=== PATIENT | female | born 2000 | race Caucasian/White ===

== ENCOUNTER 2022-02-10 18:32 | Inpatient (IN) ==
--- NOTE | 2022-02-10 18:50 | Obstetrical Progress Note ---
Date of Service February 10, 2022 Assessment & Plan (1) Mild preeclampsia: Plan: Glory is a 21-year-old currently at 37 weeks 0 days gestational age presents for cervical ripening fully for planned induction of labor tomorrow. Induction is planned secondary to mild preeclampsia. Patient was verbally consented for the procedure. We discussed risks of the procedure including rupture of membranes and intolerance of the Heath catheter. Questions an swered patient's satisfaction. Reactive NST noted prior And following cervical Heath placement. (2) Supervision of normal intrauterine in primigravida: (3) Unfavorable cervix in term : Subjective Glory is a 21-year-old currently at 37 weeks 0 days gestational age presents for cervical ripening fully for planned induction of labor tomorrow. Induction is planned secondary to mild preeclampsia. Patient was verbally consented for the procedure. We discussed risks of the procedure including rupture of membranes and intolerance of the Heath catheter. Questions answered patient's satisfaction. Results & Data ([facility]) Vital Signs (Past 12 Hours) Vital Signs Temp Pulse Resp BP 02/10/22 18:37 37.1 C 112 H 20 133/77 PG Care Time/CCT Total # of Minutes Spent Total Time Spent with Patient: Total time spent is greater than 50% in coordination of care (as documented) at patient's floor/unit and/or counseling patient: Coding Diagnoses Mild preeclampsia O14.00 Supervision of normal intrauterine in primigravida Z34.00 Unfavorable cervix in term O34.40
[2022-02-10] MEDS ORDERED: LIDOCAINE 1% LOCAL 20 ML VIAL INFIL PRN (19:53)
[2022-02-10] MEDS ORDERED: OXYTOCIN 30 UNITS/500 ML BAG IV PRN (19:53)
--- NOTE | 2022-02-10 20:05 | History & Physical Report ---
Date of Service February 10, 2022 Assessment & Plan (1) Mild preeclampsia: Plan: Glory is a 21-year-old at 37 weeks 0 days gestational age presents for cervical ripening Heath for planned induction tomorrow for mild preeclampsia. Patient was noted to have recurrent heart rate deceleration. After Heath placement. This was also noted with a distinct drop in blood pressure, nausea/vomiting and lightheaded feeling. Fetus recovered with maternal pos itioning is currently category 1. patient appeared to have a vasovagal response a Heath catheter. Discussed admitting due to the deceleration switch patient was agreeable to. Will continuously moderate overnight. (2) Supervision of normal intrauterine in primigravida: (3) Unfavorable cervix in term : History of Present Illness Primary Care Provider: NO PCP Glory is a 21-year-old currently at 37 weeks 0 days gestational age. Patient presented for cervical ripening Heath with planned induction tomorrow for mild preeclampsia. The cervical ripening Heath was placed without difficulty. Approximately 10 minutes after placement the patient had a noted dr op in blood pressure from baseline and had a prolonged deceleration noted on monitoring. spontaneously recovered. A no other deceleration recurred the patient was also noted to have vomiting and feeling of lightheadedness. The 2nd deceleration also recovered with maternal positioning. After deceleration is occurred I discussed with patient that we would admit her for continuous monitoring overnight due to the recurrent deceleration. Tracing is currently category 1. patient was agreeable to plan. OB Labs: Blood Type A Positive 07/16/21 Antibody Screen NEGATIVE 07/16/21 Hemoglobin 10.9 g/dl (12.0-16.0) L 02/08/22 Hematocrit 33.5 % (34.1-44.9) L 02/08/22 Mean Corpuscular Volume 84.8 fL (80.0-100.0) 02/08/22 Platelet Count 282 K/uL (130-400) 02/08/22 Rubella IgG Antibody Immune (Immune) 07/16/21 Rapid Plasma Reagin Nonreactive (Nonreactive) 07/16/21 Hepatitis B Surface Antigen Neg (Neg) 07/16/21 Hepatitis C Antibody Neg (Neg) 07/16/21 HIV (1&2) Ab and P24 Ag, 4th Gener Neg (Neg) 07/16/21 Glucose 1 Hour 50 gm Load 129 mg/dl (70-130) 12/18/21 Maternal Serum Alpha Fetoprotein 29.5 ng/mL 09/17/21 OB Optional Labs: Chlamydia trachomatis RNA NOT DETECTED (NOT DETECTED) 07/16/21 Neisseria gonorrhoeae RNA NOT DETECTED (NOT DETECTED) 07/16/21 Alpha Fetoprotein Triple Screen SEE NOTE 09/17/21 Labs Reviewed: csf/sma-negative--mln cfdna-low risk--mln Allergies Allergy/AdvReac Type Severity Reaction Status Date / Time No Known Allergies Allergy Verified 02/10/22 10:43 Home Medications Medication Instructions Recorded Confirmed Type prenat.vits,vidal,vwu-pmbl-oreoq 1 tab PO DAILY 07/10/21 02/10/22 History Patient History Surgical History S/P wisdom tooth extraction Family History Other Diabetes Hypertension Social History (Updated 02/10/22 @ 18:42 by Marjorie Mcdaniels RN) Smoking Status: Never smoker Hx Alcohol Use: No Hx Substance Use: No Preferred Language: Kyrgyz Communication Ability: Effective Hearing Ability: Normal Sample Maker Original Required: No Beliefs That Will Affect Care: None marital status: Single marital status details: Luiz (39) [phone] Current Living Situation: Significant Other Current Living Situation Comment: Lives with Luiz and 1 dog. current occupational status: employed current occupation: professional programmer analyst [employer] Other Information That Helps Us Care for You: No Feels Safe at Home: Yes Safety Concerns: Feels Safe At This Time Gender Identity: Female Assistive Devices: None Physical Exam Genitourinary: Manual OB Exam: + cervical dilation fingertip, + cervical effacement 70% and + station -2 OB Exam Monitor Tracing: + external FHT monitor used, + external uterine monitor used, + category I and + normal FHT variability fetus currently category 1. Results & Data ([facility]) Vital Signs (Past 12 Hours) Vital Signs Temp Pulse Resp BP Pulse Ox 02/10/22 19:49 100 02/10/22 19:49 80 02/10/22 19:49 80 93 02/10/22 19:45 80 101/63 02/10/22 19:44 80 99 02/10/22 19:39 72 99 02/10/22 19:34 76 99 02/10/22 19:32 75 92 02/10/22 19:29 52 L 98 02/10/22 19:24 61 98 02/10/22 19:09 70 110/55 L 02/10/22 18:37 37.1 C 112 H 20 133/77 Coding Level of Care Code None Diagnoses Mild preeclampsia O14.00 Supervision of normal intrauterine in primigravida Z34.00 Unfavorable cervix in term O34.40
[2022-02-10 20:22] LABS: Hematocrit (blood only) 33.9 % (34.1-44.9); Hemoglobin 10.7 g/dl (12.0-16.0); Mean Corpuscular Hemoglobin 27.2 pg (25.0-34.0); Mean Corpuscular Hgb Conc 31.6 g/dL (32.0-36.0); Mean Corpuscular Volume 86.3 fL (80.0-100.0); Mean Platelet Volume 11.7 fL (9.4-12.3); Platelet Count 270 K/uL (130-400); RDW Coefficient of Variation 13.6 % (11.5-14.5); RDW Standard Deviation 42.5 fL (36.4-46.3); Red Blood Count 3.93 M/uL (3.93-5.22); White Blood Count 11.78 K/ul (4.8-10.8)
[2022-02-10 20:43] LABS: Creatinine Clr Calc Pharmacy 153.6 ml/min; Est GFR (African American) 145.9 ml/min; Est GFR (Non-African American) 125.9 ml/min
[2022-02-11] MEDS ORDERED: OXYTOCIN 30 UNITS/500 ML BAG IV PRN ×2 (04:35→22:20)
[2022-02-11] MEDS: LACTATED RINGER'S 1,000 ML IV PRN ×3 (08:08→19:12)
--- NOTE | 2022-02-11 12:30 | Labor Progress Brief Note ---
Date of Service February 11, 2022 Subjective Patient notes some contractions but tolerating. Assessment & Plan (1) Mild preeclampsia: (2) Encounter for induction of labor: Plan continue pitocin, epidural on demand. fetus catgory one. anticipate . Admission and Anticipated Discharge Date Admission Date: February 10, 2022 Physical Exam Physical Exam: cx--4/50/-2, arom, clear toco--q3min, pit at 13 efm--140s with mod varibility, accels to 160s, no decels Results & Data ([facility]) Vital Signs (Past 12 Hours) Vital Signs Temp Pulse Resp BP 02/11/22 07:10 36.7 C 18 02/11/22 12:09 76 116/58 L 02/11/22 12:01 18 02/11/22 12:01 37.1 C 02/11/22 11:39 84 116/66 02/11/22 11:08 85 113/55 L 02/11/22 10:38 88 121/74 02/11/22 10:08 100 H 129/67 02/11/22 09:38 90 120/68 02/11/22 09:09 89 118/69 02/11/22 08:38 85 129/73 02/11/22 07:02 75 135/63 02/11/22 05:59 18 02/11/22 05:59 18 02/11/22 05:01 18 02/11/22 05:01 18 02/11/22 04:02 18 02/11/22 04:02 18 Coding Level of Care Code None Diagnoses Mild preeclampsia O14.00 Encounter for induction of labor Z34.90
[2022-02-11] MEDS ORDERED: BUPIVACAINE 0.25% 30 ML VIAL ONE (16:31)
[2022-02-11] MEDS ORDERED: fentaNYL citrate 100 MCG/2 ML VIAL ONE (16:31)
[2022-02-11] MEDS ORDERED: SODIUM CHLORIDE 0.9% INJ 10 ML VIAL ONE (16:31)
[2022-02-11] MEDS ORDERED: ePHEDrine sulfate 50 MG/ML AMP ONE (16:31)
[2022-02-11] MEDS ORDERED: LIDOCAINE 2%/EPINEPHRINE 1:200,000 20 ML SDV ONE (16:31)
[2022-02-11] MEDS ORDERED: fentaNYL 2MCG/ML ROPIVACAINE 1.25MG/ML 100 ML BAG EPI ONE (16:32)
[2022-02-11] MEDS ORDERED: ePHEDrine sulfate 50 MG/ML AMP IV PRN (16:39)
[2022-02-11] MEDS ORDERED: NALOXONE HCL 1 MG in SODIUM CHLORIDE 0.9% 1000ML 1,000 ML IV PRN (16:39)
[2022-02-11] MEDS ORDERED: NALOXONE HCL 0.4 MG/1 ML VIAL/CARP IV PRN (16:39)
[2022-02-11] MEDS ORDERED: NALBUPHINE HCL INJ 10 MG/ML AMP IV PRN (16:39)
[2022-02-11] MEDS ORDERED: fentaNYL 2MCG/ML ROPIVACAINE 1.25MG/ML 100 ML BAG EPI PRN (16:39)
[2022-02-11] MEDS ORDERED: diphenhydrAMINE 50 MG/ML VIAL IV PRN (16:39)
--- NOTE | 2022-02-11 16:39 | Anesthesiology Consultation ---
Date of Service February 11, 2022 Assessment & Plan (1) Encounter for pre-operative examination: Chart Review Chart Review: Patient NOT seen in Pre Admission Testing and Acceptable Risk for Labor Epidural Consults Requested none History Height/Weight Height: 5 ft 3 in Weight: 105.687 kg Allergies Allergy/AdvReac Type Severity Reaction Status Date / Time No Known Allergies Allergy Verified 02/10/22 10:43 Medications Home Medications Medication Instructions Recorded Confirmed Last Taken prenat.vits,vidal,ehl-ycus-xjbka 1 tab PO DAILY 07/10/21 02/10/22 02/09/22 08:00 Active Medications Generic Name Dose Route Start Last Admin Trade Name Freq PRN Reason Stop Dose Admin Lactated Ringer's 1,000 mls @ 125 mls/hr 02/10/22 19:53 02/11/22 16:23 Lr IV 02/12/22 19:52 999 mls/hr .Q8H PRN Administration L&D Protocol Protocol Oxytocin 30 units in 500 mls @ 15 mls/hr 02/11/22 04:35 02/11/22 14:00 Pitocin IV 02/13/22 04:34 0.9 units/hr .Q24H PRN 15 mls/hr Labor Induction/Augmentation Titration Protocol 0.9 UNITS/HR Past Family History Family History Other Diabetes Hypertension Past Surgical History Surgical History S/P wisdom tooth extraction Social History Smoking Status: Never smoker Hx Alcohol Use: No Hx Substance Use: No substance use type: does not use Physical Exam Vital Signs Last Vital Signs Temp 98.4 F 02/11/22 16:20 Pulse 68 02/11/22 16:08 Resp 18 02/11/22 14:30 BP 121/65 02/11/22 16:08 Pulse Ox 100 02/10/22 19:49 Testing Laboratory Results 02/10/22 20:10 02/10/22 20:10 Blood Type A Positive 02/10/22 20:10 Antibody Screen NEGATIVE 02/10/22 20:10
--- NOTE | 2022-02-11 18:21 | Labor Progress Brief Note ---
Date of Service February 11, 2022 Subjective comfortable after epidural Assessment & Plan (1) Encounter for induction of labor: (2) Mild preeclampsia: Plan continue current management. pit max of 30 now. goal of 200 mvus. bps are stable. fetus category one. Admission and Anticipated Discharge Date Admission Date: February 10, 2022 Physical Exam Physical Exam: cx--5/100/-1 iupc placed clear fluid toco--irregular since epidural, q 2 6 min, pit at 19 efm--140s with mod variability, accels to 160s, no decels, +scalp stim Results & Data ([facility]) Vital Signs (Past 12 Hours) Vital Signs Temp Pulse Resp BP Pulse Ox 02/11/22 07:10 36.7 C 18 02/11/22 18:14 99 H 99 02/11/22 18:09 83 100 02/11/22 18:04 88 100 02/11/22 18:02 86 126/63 02/11/22 18:00 18 02/11/22 18:00 18 02/11/22 17:59 85 100 02/11/22 17:57 83 124/59 L 02/11/22 17:54 87 100 02/11/22 17:52 86 123/64 02/11/22 17:45 18 02/11/22 17:45 18 02/11/22 17:49 88 100 02/11/22 17:46 86 129/76 02/11/22 17:44 91 H 100 02/11/22 17:42 90 141/65 H 02/11/22 17:39 91 H 100 02/11/22 17:37 96 H 136/69 02/11/22 17:34 88 100 02/11/22 17:30 18 02/11/22 17:30 18 02/11/22 17:31 111 H 143/65 H 02/11/22 17:06 18 02/11/22 17:06 18 02/11/22 17:08 18 02/11/22 17:08 18 02/11/22 17:12 20 02/11/22 17:12 20 02/11/22 17:29 92 H 100 02/11/22 17:26 83 133/60 02/11/22 17:24 111 H 18 100 02/11/22 17:19 115 H 20 137/60 100 02/11/22 17:18 105 H 132/63 02/11/22 17:15 93 H 20 135/75 02/11/22 17:14 100 02/11/22 17:14 96 H 02/11/22 17:14 99 H 135/73 02/11/22 17:11 93 H 129/62 02/11/22 17:09 95 H 128/59 L 100 02/11/22 17:07 89 126/59 L 02/11/22 17:05 101 H 135/62 02/11/22 17:04 100 H 100 02/11/22 17:03 112 H 144/69 H 02/11/22 17:01 112 H 139/71 02/11/22 16:59 105 H 134/67 100 02/11/22 16:58 92 H 136/77 02/11/22 16:54 108 H 100 02/11/22 16:49 89 100 02/11/22 16:44 86 100 02/11/22 16:39 80 151/75 H 100 02/11/22 16:20 36.9 C 02/11/22 16:08 68 121/65 02/11/22 15:38 85 127/58 L 02/11/22 15:09 95 H 128/80 02/11/22 14:39 83 129/67 02/11/22 14:30 18 02/11/22 14:30 36.7 C 18 02/11/22 14:08 80 131/73 02/11/22 13:38 77 131/73 02/11/22 13:09 71 117/66 02/11/22 12:39 75 122/58 L 02/11/22 12:30 37.5 C 02/11/22 12:09 76 116/58 L 02/11/22 12:01 18 02/11/22 12:01 37.1 C 18 02/11/22 11:39 84 116/66 02/11/22 11:08 85 113/55 L 02/11/22 10:38 88 121/74 02/11/22 10:08 100 H 129/67 02/11/22 09:38 90 120/68 02/11/22 09:09 89 118/69 02/11/22 08:38 85 129/73 02/11/22 07:02 75 135/63 Coding Level of Care Code None Diagnoses Encounter for induction of labor Z34.90 Mild preeclampsia O14.00
--- NOTE | 2022-02-11 20:31 | Labor Progress Brief Note ---
Date of Service February 11, 2022 Subjective comfortable Assessment & Plan (1) Encounter for induction of labor: (2) Mild preeclampsia: Plan continue current plan, contractions adequate. fetus overall category one with a rare variable. Admission and Anticipated Discharge Date Admission Date: February 10, 2022 Physical Exam Physical Exam: cx--6/100/-1, molding toco--q1-2min, pit at 19, contractions adequate efm--150s with mod variability, accels to 160s, rare variable Results & Data ([facility]) Vital Signs (Past 12 Hours) Vital Signs Temp Pulse Resp BP Pulse Ox O2 Del Method 02/11/22 19:05 37.5 C 18 02/11/22 19:05 Room Air 02/11/22 20:24 108 H 100 02/11/22 20:25 110 H 122/59 L 02/11/22 20:19 81 100 02/11/22 20:14 80 100 02/11/22 20:09 81 100 02/11/22 20:10 81 95/53 L 02/11/22 20:00 18 02/11/22 20:00 18 02/11/22 20:04 81 100 02/11/22 19:59 83 100 02/11/22 19:54 100 02/11/22 19:54 83 02/11/22 19:54 86 98/57 L 02/11/22 19:49 81 99 02/11/22 19:44 80 100 02/11/22 19:39 81 100 02/11/22 19:38 77 101/50 L 02/11/22 19:30 18 02/11/22 19:30 18 02/11/22 19:34 79 100 02/11/22 19:29 78 100 02/11/22 19:24 77 100 02/11/22 19:25 78 104/52 L 02/11/22 19:19 81 100 02/11/22 19:14 78 100 02/11/22 19:09 75 100 02/11/22 19:08 80 102/50 L 02/11/22 19:04 74 100 02/11/22 19:03 77 98/51 L 02/11/22 19:00 37.5 C 02/11/22 19:00 20 02/11/22 19:00 20 02/11/22 18:59 82 100 02/11/22 18:58 80 100/50 L 02/11/22 18:54 81 100 02/11/22 18:55 80 110/58 L 02/11/22 18:49 75 100 02/11/22 18:50 75 100/56 L 02/11/22 18:45 18 02/11/22 18:45 18 02/11/22 18:44 80 99/55 L 100 02/11/22 18:39 73 100 02/11/22 18:30 20 02/11/22 18:30 20 02/11/22 18:38 80 104/55 L 02/11/22 18:37 81 96/52 L 02/11/22 18:34 78 91/49 L 100 02/11/22 18:29 72 100 02/11/22 18:24 73 100 02/11/22 18:16 18 02/11/22 18:16 37.0 C 18 02/11/22 18:19 100 02/11/22 18:19 105 H 02/11/22 18:19 126 H 132/85 02/11/22 18:14 99 H 99 02/11/22 18:09 83 100 02/11/22 18:04 88 100 02/11/22 18:02 86 126/63 02/11/22 18:00 18 02/11/22 18:00 18 02/11/22 17:59 85 100 02/11/22 17:57 83 124/59 L 02/11/22 17:54 87 100 02/11/22 17:52 86 123/64 02/11/22 17:45 18 02/11/22 17:45 18 02/11/22 17:49 88 100 02/11/22 17:46 86 129/76 02/11/22 17:44 91 H 100 02/11/22 17:42 90 141/65 H 02/11/22 17:39 91 H 100 02/11/22 17:37 96 H 136/69 02/11/22 17:34 88 100 02/11/22 17:30 18 02/11/22 17:30 18 02/11/22 17:31 111 H 143/65 H 02/11/22 17:06 18 02/11/22 17:06 18 02/11/22 17:08 18 02/11/22 17:08 18 09/20/22 17:12 20 02/11/22 17:12 20 02/11/22 17:29 92 H 100 02/11/22 17:26 83 133/60 02/11/22 17:24 111 H 18 100 02/11/22 17:19 115 H 20 137/60 100 02/11/22 17:18 105 H 132/63 02/11/22 17:15 93 H 20 135/75 02/11/22 17:14 100 02/11/22 17:14 96 H 02/11/22 17:14 99 H 135/73 02/11/22 17:11 93 H 129/62 02/11/22 17:09 95 H 128/59 L 100 02/11/22 17:07 89 126/59 L 02/11/22 17:05 101 H 135/62 02/11/22 17:04 100 H 100 02/11/22 17:03 112 H 144/69 H 02/11/22 17:01 112 H 139/71 02/11/22 16:59 105 H 134/67 100 02/11/22 16:58 92 H 136/77 02/11/22 16:54 108 H 100 02/11/22 16:49 89 100 02/11/22 16:44 86 100 02/11/22 16:39 80 151/75 H 100 02/11/22 16:20 36.9 C 02/11/22 16:08 68 121/65 02/11/22 15:38 85 127/58 L 02/11/22 15:09 95 H 128/80 02/11/22 14:39 83 129/67 02/11/22 14:30 18 02/11/22 14:30 36.7 C 02/11/22 14:08 80 131/73 02/11/22 13:38 77 131/73 02/11/22 13:09 71 117/66 02/11/22 12:39 75 122/58 L 02/11/22 12:30 37.5 C 02/11/22 12:09 76 116/58 L 02/11/22 12:01 18 02/11/22 12:01 37.1 C 18 02/11/22 11:39 84 116/66 02/11/22 11:08 85 113/55 L 02/11/22 10:38 88 121/74 02/11/22 10:08 100 H 129/67 02/11/22 09:38 90 120/68 02/11/22 09:09 89 118/69 02/11/22 08:38 85 129/73 Coding Level of Care Code None Diagnoses Encounter for induction of labor Z34.90 Mild preeclampsia O14.00
--- NOTE | 2022-02-11 21:44 | Labor Progress Brief Note ---
Date of Service February 11, 2022 Subjective patietn started feeling uncomfortable and pressure Assessment & Plan (1) Encounter for induction of labor: (2) Mild preeclampsia: Plan begin second stage. fetus overall reassuring. anticipate . Admission and Anticipated Discharge Date Admission Date: February 10, 2022 Physical Exam Physical Exam: cx--c/c/+2 toco--q2-3min efm--150s wtih mod variabitiy, accels xt471s, variable/early with contractions. Results & Data ([facility]) Vital Signs (Past 12 Hours) Vital Signs Temp Pulse Resp BP Pulse Ox O2 Del Method 02/11/22 19:05 37.5 C 18 02/11/22 19:05 Room Air 02/11/22 21:39 100 02/11/22 21:39 112 H 02/11/22 21:39 90 120/56 L 02/11/22 21:34 85 100 02/11/22 21:29 88 99 02/11/22 21:25 113 H 136/58 L 02/11/22 21:24 117 H 100 02/11/22 21:19 107 H 99 02/11/22 21:14 108 H 99 02/11/22 21:00 18 02/11/22 21:00 18 02/11/22 21:09 106 H 99 02/11/22 21:08 93 H 135/61 02/11/22 21:04 106 H 98 02/11/22 20:59 104 H 98 02/11/22 20:55 103 H 137/70 02/11/22 20:54 96 H 98 02/11/22 20:30 18 02/11/22 20:30 18 02/11/22 20:49 103 H 98 02/11/22 20:44 97 H 99 02/11/22 20:39 100 02/11/22 20:39 94 H 02/11/22 20:39 93 H 134/68 02/11/22 20:30 18 02/11/22 20:30 37.6 C H 18 02/11/22 20:34 92 H 100 02/11/22 20:29 103 H 99 02/11/22 20:24 108 H 100 02/11/22 20:25 110 H 122/59 L 02/11/22 20:19 81 100 02/11/22 20:14 80 100 02/11/22 20:09 81 100 02/11/22 20:10 81 95/53 L 02/11/22 20:00 18 02/11/22 20:00 18 02/11/22 20:04 81 100 02/11/22 19:59 83 100 02/11/22 19:54 100 02/11/22 19:54 83 02/11/22 19:54 86 98/57 L 02/11/22 19:49 81 99 02/11/22 19:44 80 100 02/11/22 19:39 81 100 02/11/22 19:38 77 101/50 L 02/11/22 19:30 18 02/11/22 19:30 18 02/11/22 19:34 79 100 02/11/22 19:29 78 100 02/11/22 19:24 77 100 02/11/22 19:25 78 104/52 L 02/11/22 19:19 81 100 02/11/22 19:14 78 100 02/11/22 19:09 75 100 02/11/22 19:08 80 102/50 L 02/11/22 19:04 74 100 02/11/22 19:03 77 98/51 L 02/11/22 19:00 37.5 C 02/11/22 19:00 20 02/11/22 19:00 20 02/11/22 18:59 82 100 02/11/22 18:58 80 100/50 L 02/11/22 18:54 81 100 02/11/22 18:55 80 110/58 L 02/11/22 18:49 75 100 02/11/22 18:50 75 100/56 L 02/11/22 18:45 18 02/11/22 18:45 18 02/11/22 18:44 80 99/55 L 100 02/11/22 18:39 73 100 02/11/22 18:30 20 02/11/22 18:30 20 02/11/22 18:38 80 104/55 L 02/11/22 18:37 81 96/52 L 02/11/22 18:34 78 91/49 L 100 02/11/22 18:29 72 100 02/11/22 18:24 73 100 02/11/22 18:16 18 02/11/22 18:16 37.0 C 18 02/11/22 18:19 100 02/11/22 18:19 105 H 02/11/22 18:19 126 H 132/85 02/11/22 18:14 99 H 99 02/11/22 18:09 83 100 02/11/22 18:04 88 100 02/11/22 18:02 86 126/63 02/11/22 18:00 18 02/11/22 18:00 18 02/11/22 17:59 85 100 02/11/22 17:57 83 124/59 L 02/11/22 17:54 87 100 02/11/22 17:52 86 123/64 02/11/22 17:45 18 02/11/22 17:45 18 02/11/22 17:49 88 100 02/11/22 17:46 86 129/76 02/11/22 17:44 91 H 100 02/11/22 17:42 90 141/65 H 02/11/22 17:39 91 H 100 02/11/22 17:37 96 H 136/69 02/11/22 17:34 88 100 02/11/22 17:30 18 02/11/22 17:30 18 02/11/22 17:31 111 H 143/65 H 02/11/22 17:06 18 02/11/22 17:06 18 02/11/22 17:08 18 02/11/22 17:08 18 02/11/22 17:12 20 02/11/22 17:12 20 02/11/22 17:29 92 H 100 02/11/22 17:26 83 133/60 02/11/22 17:24 111 H 18 100 02/11/22 17:19 115 H 20 137/60 100 02/11/22 17:18 105 H 132/63 02/11/22 17:15 93 H 20 135/75 02/11/22 17:14 100 02/11/22 17:14 96 H 02/11/22 17:14 99 H 135/73 02/11/22 17:11 93 H 129/62 02/11/22 17:09 95 H 128/59 L 100 02/11/22 17:07 89 126/59 L 02/11/22 17:05 101 H 135/62 02/11/22 17:04 100 H 100 09/20/22 17:03 112 H 144/69 H 02/11/22 17:01 112 H 139/71 02/11/22 16:59 105 H 134/67 100 02/11/22 16:58 92 H 136/77 02/11/22 16:54 108 H 100 02/11/22 16:49 89 100 02/11/22 16:44 86 100 02/11/22 16:39 80 151/75 H 100 02/11/22 16:20 36.9 C 02/11/22 16:08 68 121/65 02/11/22 15:38 85 127/58 L 02/11/22 15:09 95 H 128/80 02/11/22 14:39 83 129/67 02/11/22 14:30 18 02/11/22 14:30 36.7 C 18 02/11/22 14:08 80 131/73 02/11/22 13:38 77 131/73 02/11/22 13:09 71 117/66 02/11/22 12:39 75 122/58 L 02/11/22 12:30 37.5 C 02/11/22 12:09 76 116/58 L 02/11/22 12:01 18 02/11/22 12:01 37.1 C 18 02/11/22 11:39 84 116/66 02/11/22 11:08 85 113/55 L 02/11/22 10:38 88 121/74 02/11/22 10:08 100 H 129/67 Coding Level of Care Code None Diagnoses Encounter for induction of labor Z34.90 Mild preeclampsia O14.00
[2022-02-11] MEDS ORDERED: DIPHTHERIA/TETANUS/PERTUSSIS 0.5 ML SYR/VIAL IM ONE (22:20)
[2022-02-11] MEDS ORDERED: bisacodyL 10 MG SUPP PR PRN (22:20)
[2022-02-11] MEDS ORDERED: ACETAMINOPHEN 325 MG TAB PO PRN (22:20)
[2022-02-11] MEDS ORDERED: HYDROCORTISONE ACETATE 25 MG SUPP PR PRN (22:20)
[2022-02-11] MEDS ORDERED: oxyCODONE/ACETAMINOPHEN 5mg/325mg TAB PO PRN (22:20)
[2022-02-11] MEDS ORDERED: BENZOCAINE 20% AER SPR 82.5 GM CAN EXT PRN (22:20)
--- NOTE | 2022-02-11 22:20 | Delivery Summary ---
Vaginal Delivery Summary Date of Service February 11, 2022 Vaginal Delivery Summary and 1st Degree LAC (bilateral labial) Pre-operative Diagnosis: at 37 weeks pet Post-operative Diagnosis: same Procedure: mascorro bulb for cervical ripening pitocin induction arom epidural iupc first degree and bilateral labial lacerations and repair EBL: 300cc Anesthesia: epidual Procedure: Patient presented yesterday evening for mascorro bulb. mascorro placed but then patient had valsalva episode x 2 with good recovery. She was then admitted for induction. Mascorro fell out in the am. Pitocin was started. Once in a good contraction pattern, arom done for clear fluid at 5cm. Patient required iupc to document adequate contraction pattern. She then progress to c/c/+w. The patient pushed for 3-4 contractions to deliver a viable female in hung position. The nose and mouth were bulb suctioned on the perineum, a nuchal cord reduced easily, and the rest of the was then delivered without difficulty. The baby was vigorous. The nose and mouth were again bulb suctioned and the infant was placed in the maternal abdomen for drying and attention. Cord was clamped and cut at one minute of life. Cord blood and segment obtained. Placenta delivered spontaneous, intact with a three vessel cord. Cervix/sulci/rectum were intact. A first degree perineal laceration and bilateral labial lacs were repaired in the normal standard fashion. Hemostasis obtained with dilute pitocin and fundal massage. Apgars were 8/9. Mother and baby doing well at the end of the delivery. PET labs were normal and her pressures remained good throughout labor. [facility] Vaginal Delivery Charge Delivery Type Details: and 1st Degree LAC (bilateral labial)
--- NOTE | 2022-02-12 05:19 | Obstetrical Progress Note ---
Date of Service February 12, 2022 Assessment & Plan (1) Mild preeclampsia: (2) Vaginal delivery: Plan - Overall, feeling well and eating well today - Patient denies headache or visual changes, BP is wnl - breast feeding going well without concern - Urinating and passing gas appropriately - Ambulating well througout room - Pain controlled w/o medication - Routine PP care progressing well - Anticipate discharge tomorrow Admission and Anticipated Discharge Date Admission Date: February 10, 2022 Supervising Physician Co-Signing Physician Notes Resident Physician Supervision Note: I interviewed and examined the patient. Discussed with Dr. Dorsey and agree with findings and plan as documented in the note. Any exceptions or clarifications are listed here: Doing well. BPs are great. no s/s of pet. Routine care. Likely d/c tomorrow. Documented By: Martha Lewis MD, FACOG Subjective Today 02/12: Patient is a 21 y/o female who is PPD #1 following delivery after IOL for pre-eclampsia at 37w1d. Patient states that she is feeling well overall. - Ambulation - around room without difficulty - Voiding/Heath - independently voiding without difficulty or dysuria - Gas/Stool - passing gas, no bowel movement - Diet - regular diet, no nausea or emesis - Lochia - unchanged, moderate-heavy - Feeding Type - w/ pumping - Pain Level - 4/10 without pain medication, patient not interested in additional pain mgmt at this time Review of Systems - Denies fever, chills, sweats - Denies shortness of breath, difficulty breathing, chest pain, palpitations, chest pressure. - Denies breast pain. - Denies dysuria. - Denies headache or changes in vision. Physical Exam Physical Exam: General: Alert, oriented. No acute distress. Cardiac: RRR, normal S1/S2, no murmurs/rubs/gallops. Respiratory: Non-labored, CTAB, no wheezes/rales/rhonchi. Symmetric chest rise. Abdomen: Soft, nontender, nondistended. Bowel sounds present. Uterus: Uterine fundus firm, palpable 2 cm below umbilicus. Lower Extremities: 2+ lower extremity edema. No deep calf pain. Leida's negative bilaterally. Results & Data ([facility]) Vital Signs (Past 12 Hours) Vital Signs Temp Pulse Pulse Resp BP BP Pulse Ox 02/12/22 00:35 37.2 C 115 H 18 122/83 98 02/12/22 00:20 36.7 C 126 H 18 112/53 L 02/11/22 23:45 127 H 18 118/55 L 02/11/22 23:15 18 02/11/22 23:00 18 02/11/22 22:45 18 02/11/22 22:30 18 02/11/22 22:15 37.7 C H 18 02/11/22 19:05 37.5 C 18 02/11/22 19:05 02/12/22 00:13 126 H 112/53 L 02/11/22 23:58 131 H 103/54 L 02/11/22 23:43 127 H 118/55 L 02/11/22 23:28 114 H 128/58 L 02/11/22 23:13 93 H 116/58 L 02/11/22 22:58 115 H 110/63 02/11/22 22:43 97 H 115/58 L 02/11/22 21:30 20 02/11/22 21:30 20 02/11/22 22:28 114 H 120/59 L 02/11/22 22:13 133 H 120/62 02/11/22 22:09 98 02/11/22 22:09 145 H 02/11/22 22:09 142 H 129/56 L 02/11/22 22:07 37.7 C H 02/11/22 22:04 144 H 98 02/11/22 21:59 140 H 99 02/11/22 21:54 164 H 99 02/11/22 21:49 134 H 100 02/11/22 21:44 143 H 100 02/11/22 21:39 100 02/11/22 21:39 112 H 02/11/22 21:39 90 120/56 L 02/11/22 21:34 85 100 02/11/22 21:29 88 99 02/11/22 21:25 113 H 136/58 L 02/11/22 21:24 117 H 100 02/11/22 21:19 107 H 99 02/11/22 21:14 108 H 99 02/11/22 21:00 18 02/11/22 21:00 18 02/11/22 21:09 106 H 99 02/11/22 21:08 93 H 135/61 02/11/22 21:04 106 H 98 02/11/22 20:59 104 H 98 02/11/22 20:55 103 H 137/70 02/11/22 20:54 96 H 98 02/11/22 20:30 18 02/11/22 20:30 18 02/11/22 20:49 103 H 98 02/11/22 20:44 97 H 99 02/11/22 20:39 100 02/11/22 20:39 94 H 02/11/22 20:39 93 H 134/68 02/11/22 20:30 18 02/11/22 20:30 37.6 C H 18 02/11/22 20:34 92 H 100 02/11/22 20:29 103 H 99 02/11/22 20:24 108 H 100 02/11/22 20:25 110 H 122/59 L 02/11/22 20:19 81 100 02/11/22 20:14 80 100 02/11/22 20:09 81 100 02/11/22 20:10 81 95/53 L 02/11/22 20:00 18 02/11/22 20:00 18 02/11/22 20:04 81 100 02/11/22 19:59 83 100 02/11/22 19:54 100 02/11/22 19:54 83 02/11/22 19:54 86 98/57 L 02/11/22 19:49 81 99 02/11/22 19:44 80 100 02/11/22 19:39 81 100 02/11/22 19:38 77 101/50 L 02/11/22 19:30 18 02/11/22 19:30 18 02/11/22 19:34 79 100 02/11/22 19:29 78 100 02/11/22 19:24 77 100 02/11/22 19:25 78 104/52 L 02/11/22 19:19 81 100 02/11/22 19:14 78 100 02/11/22 19:09 75 100 02/11/22 19:08 80 102/50 L 02/11/22 19:04 74 100 02/11/22 19:03 77 98/51 L 02/11/22 19:00 37.5 C 02/11/22 19:00 20 02/11/22 19:00 20 02/11/22 18:59 82 100 02/11/22 18:58 80 100/50 L 02/11/22 18:54 81 100 02/11/22 18:55 80 110/58 L 02/11/22 18:49 75 100 02/11/22 18:50 75 100/56 L 02/11/22 18:45 18 02/11/22 18:45 18 02/11/22 18:44 80 99/55 L 100 02/11/22 18:39 73 100 02/11/22 18:30 20 02/11/22 18:30 20 02/11/22 18:38 80 104/55 L 02/11/22 18:37 81 96/52 L 02/11/22 18:34 78 91/49 L 100 02/11/22 18:29 72 100 02/11/22 18:24 73 100 02/11/22 18:16 18 02/11/22 18:16 37.0 C 18 02/11/22 18:19 100 02/11/22 18:19 105 H 02/11/22 18:19 126 H 132/85 02/11/22 18:14 99 H 99 02/11/22 18:09 83 100 02/11/22 18:04 88 100 02/11/22 18:02 86 126/63 02/11/22 18:00 18 02/11/22 18:00 18 02/11/22 17:59 85 100 02/11/22 17:57 83 124/59 L 02/11/22 17:54 87 100 02/11/22 17:52 86 123/64 02/11/22 17:45 18 02/11/22 17:45 18 02/11/22 17:49 88 100 02/11/22 17:46 86 129/76 02/11/22 17:44 91 H 100 02/11/22 17:42 90 141/65 H 02/11/22 17:39 91 H 100 02/11/22 17:37 96 H 136/69 02/11/22 17:34 88 100 02/11/22 17:30 18 02/11/22 17:30 18 02/11/22 17:31 111 H 143/65 H 02/11/22 17:29 92 H 100 02/11/22 17:26 83 133/60 02/11/22 17:24 111 H 18 100 02/11/22 17:19 115 H 20 137/60 100 02/11/22 17:18 105 H 132/63 O2 Del Method 02/12/22 00:35 Room Air 02/12/22 00:20 02/11/22 23:45 02/11/22 23:15 02/11/22 23:00 02/11/22 22:45 02/11/22 22:30 02/11/22 22:15 02/11/22 19:05 02/11/22 19:05 Room Air 02/12/22 00:13 02/11/22 23:58 02/11/22 23:43 02/11/22 23:28 02/11/22 23:13 02/11/22 22:58 02/11/22 22:43 02/11/22 21:30 02/11/22 21:30 02/11/22 22:28 02/11/22 22:13 02/11/22 22:09 02/11/22 22:09 02/11/22 22:09 02/11/22 22:07 02/11/22 22:04 02/11/22 21:59 02/11/22 21:54 02/11/22 21:49 02/11/22 21:44 02/11/22 21:39 02/11/22 21:39 02/11/22 21:39 02/11/22 21:34 02/11/22 21:29 02/11/22 21:25 02/11/22 21:24 02/11/22 21:19 02/11/22 21:14 02/11/22 21:00 02/11/22 21:00 02/11/22 21:09 02/11/22 21:08 02/11/22 21:04 02/11/22 20:59 02/11/22 20:55 02/11/22 20:54 02/11/22 20:30 02/11/22 20:30 02/11/22 20:49 02/11/22 20:44 02/11/22 20:39 02/11/22 20:39 02/11/22 20:39 02/11/22 20:30 02/11/22 20:30 02/11/22 20:34 02/11/22 20:29 02/11/22 20:24 02/11/22 20:25 02/11/22 20:19 02/11/22 20:14 02/11/22 20:09 02/11/22 20:10 02/11/22 20:00 02/11/22 20:00 02/11/22 20:04 02/11/22 19:59 02/11/22 19:54 02/11/22 19:54 02/11/22 19:54 02/11/22 19:49 02/11/22 19:44 02/11/22 19:39 02/11/22 19:38 02/11/22 19:30 02/11/22 19:30 02/11/22 19:34 02/11/22 19:29 02/11/22 19:24 02/11/22 19:25 02/11/22 19:19 02/11/22 19:14 02/11/22 19:09 02/11/22 19:08 02/11/22 19:04 02/11/22 19:03 02/11/22 19:00 02/11/22 19:00 02/11/22 19:00 02/11/22 18:59 02/11/22 18:58 02/11/22 18:54 02/11/22 18:55 02/11/22 18:49 02/11/22 18:50 02/11/22 18:45 02/11/22 18:45 02/11/22 18:44 02/11/22 18:39 02/11/22 18:30 02/11/22 18:30 02/11/22 18:38 02/11/22 18:37 02/11/22 18:34 02/11/22 18:29 02/11/22 18:24 02/11/22 18:16 02/11/22 18:16 02/11/22 18:19 02/11/22 18:19 02/11/22 18:19 02/11/22 18:14 02/11/22 18:09 02/11/22 18:04 02/11/22 18:02 02/11/22 18:00 02/11/22 18:00 02/11/22 17:59 02/11/22 17:57 02/11/22 17:54 02/11/22 17:52 02/11/22 17:45 02/11/22 17:45 02/11/22 17:49 02/11/22 17:46 02/11/22 17:44 02/11/22 17:42 02/11/22 17:39 02/11/22 17:37 02/11/22 17:34 02/11/22 17:30 02/11/22 17:30 02/11/22 17:31 02/11/22 17:29 02/11/22 17:26 02/11/22 17:24 02/11/22 17:19 02/11/22 17:18 Resident Activity Tracking Resident Involvement: Resident Care Provided Care Provided: OB Delivery
[2022-02-12 06:38] LABS: Hematocrit (blood only) 27.5 % (34.1-44.9); Hemoglobin 9.2 g/dl (12.0-16.0)
[2022-02-12] MEDS: PRENATAL VITAMIN 1 TAB PO SCH (08:44)
[2022-02-12] MEDS: DOCUSATE SODIUM 100 MG CAP PO SCH ×2 (08:44→19:50)
--- NOTE | 2022-02-12 10:33 | Anesthesia Procedure Note ---
Date of Service February 12, 2022 Anesthesia Post Epidural Note Vital Signs Vital Signs: Temp Pulse Resp BP Pulse Ox O2 Del Method 37.1 C 88 18 119/77 98 02/12/22 08:00 02/12/22 08:00 02/12/22 08:00 02/12/22 08:00 02/12/22 08:00 02/12/22 08:00 Pain Intensity Abdomen: Pain Intensity: 0 Notes Mental Status: alert / awake / arousable Nausea / Vomiting: adequately controlled Pain: adequately controlled Airway Patency, RR, SpO2: stable & adequate BP & HR: stable & adequate Hydration State: stable & adequate Neuraxial Anesthesia: was administered and sensory block is resolving Anesthetic Complications: no major complications apparent and Pt Satisfied with anesthetic care Epidural: Removed without complications and With tip intact
[2022-02-12] MEDS: IBUPROFEN 600 MG TAB PO PRN (19:50)
[2022-02-12] MEDS ORDERED: bisacodyL 5 MG TABEC PO SCH (20:00)
--- NOTE | 2022-02-13 05:07 | Obstetrical Progress Note ---
Date of Service February 13, 2022 Assessment & Plan (1) Mild preeclampsia: (2) Vaginal delivery: Plan - Overall, feeling well and eating well today - Excited to go home with baby - Patient denies headache or visual changes, BP is wnl - Hgb 9.2 on 02/12 - breast feeding going well, no concerns - Urinating and passing gas appropriately, no bowel movement - Ambulating well throughout room - Pain controlled w/o medication - Routine PP care progressing well - Discharge today Admission and Anticipated Discharge Date Admission Date: February 10, 2022 Supervising Physician Co-Signing Physician Notes Resident Physician Supervision Note: I was present with Dr. Dorsey during the history and exam. I discussed the case with the resident and agree with the findings and plan as documented in the note. Any exceptions or clarifications are listed here: PPD#2 doing well. DC home. Documented By: Khadra Stark, DO Subjective Today 02/13: Patient is a 21 y/o female who is PPD #2 following delivery after IOL for pre-eclampsia at 37w1d. Patient is feeling well overall today and is excited to go home. - Ambulation - around room without difficulty - Voiding/Heath - independently voiding without difficulty or dysuria - Gas/Stool - passing gas, no bowel movement - Diet - regular diet, no nausea or emesis - Lochia - decreasing, light amount - Feeding Type - at present, has pump at home - Pain Level - 1/10 without pain medication, requested Midol last evening for cramps Review of Systems - Denies fever, chills, sweats - Denies shortness of breath, difficulty breathing, chest pain, palpitations, chest pressure. - Denies breast pain. - Denies dysuria. - Denies headache or changes in vision. Original headache after delivery has not recurred. Physical Exam Physical Exam: General: Alert, oriented. No acute distress. Cardiac: RRR, normal S1/S2, no murmurs/rubs/gallops. Respiratory: Non-labored, CTAB, no wheezes/rales/rhonchi. Symmetric chest rise. Abdomen: Soft, nontender, nondistended. Bowel sounds present. Uterus: Uterine fundus firm, palpable 2 cm below umbilicus. Lower Extremities: 2+ lower extremity edema. No deep calf pain. Leida's negative bilaterally. Results & Data ([facility]) Vital Signs (Past 12 Hours) Vital Signs Temp Pulse Resp BP Pulse Ox O2 Del Method 02/12/22 23:15 36.9 C 82 18 126/75 Room Air 02/12/22 19:40 Room Air 02/12/22 19:40 37.4 C 86 18 125/82 99 Room Air 02/12/22 17:12 37 C 89 18 113/71 100 Room Air Resident Activity Tracking Resident Involvement: Resident Care Provided Care Provided: OB Delivery
[2022-02-13] MEDS: IBUPROFEN 600 MG TAB PO PRN (08:19)
[2022-02-13] MEDS: DOCUSATE SODIUM 100 MG CAP PO SCH (08:19)
[2022-02-13] MEDS: PRENATAL VITAMIN 1 TAB PO SCH (08:19)
== END 2022-02-13 13:10 | disposition home or self-care (01) | DRG 807 ==
LOC: OPB 18:32 → 4S1 18:33 → 4E2 02-12 00:35